=== PATIENT | male | born 1980 | race Caucasian/White ===

== ENCOUNTER 2024-02-21 14:03 | Emergency (ER) | payer OTHER, SELFPAY ==
[2024-02-21 14:06] VITALS: BP 151/98
[2024-02-21 15:00] VITALS: BMI 31.8
[2024-02-21 15:04] VITALS: BP 138/94
[2024-02-21 15:14] LABS: % Basophils 0.2 % (0-2); % Eosinophils 1.5 % (0-6); % Immature Granulocytes 0.4 % (0-0.5); % Lymphocytes 39.2 % (20.5-51.1); % Monocytes 6.2 % (1.7-9.3); % Neutrophils 52.5 % (42.2-75.2); Absolute Eosinophils 0.1 10^3/uL (0-0.7); Absolute Lymphocytes 3.7 10^3/uL (1.2-3.4); Absolute Monocytes 0.6 10^3/uL (0.1-0.6); Hematocrit 50.6 % (39.0-52.0); Hemoglobin 17.7 g/dL (13.0-18.0); Mean Corpuscular Hgb 31.3 pg (27.0-31.0); Mean Corpuscular Volume 89.4 fL (80.0-94.0); Mean Platelet Volume 11.1 fL (7.4-10.4); Nucleated Red Blood Cells % 0 % (-); Platelet Count 182 10^3/uL (130-400); Red Blood Cell Count 5.66 10^6/uL (4.70-6.10); Red Cell Dist. Width 13.5 % (11.5-14.5); White Blood Cell Count 9.5 10^3/uL (4.8-10.8)
--- NOTE | 2024-02-21 15:17 | ED.GENMED ---
History of Present Illness
<Tana Kaye PA-C - Last Filed: 02/21/24 18:22>
General
Chief Complaint: Dizziness
Source: patient
Exam Limitations: none
Time Seen by Provider: 02/21/24 15:14
Nursing documentation reviewed up to this point in time: agreed with
Travel History
Have you had any contact with someone who has COVID-19?: No
Do you have any symptoms of coronavirus? Fever > 100 degrees, chills, cough, shortness of breath, sore throat, loss of taste or smell, muscle aches, or headache?: No
History of Present Illness
History of Present Illness:
43-year-old male with past medical history of hypertension, psoriasis, nephrolithiasis presenting emergency department today with lightheadedness/dizziness. Patient states that this started 6 days ago. Patient states that he started feeling this
sensation when he would stand from a sitting position. Patient denies any loss of consciousness, any syncopal episode. Patient states that at rest and sitting down he would feel better. Patient, because of the symptoms, started to take his blood
pressure and noticed it was lower, systolically in the 100s to the 110s when he normally runs systolically in the 130s. Because of this, patient withheld his blood pressure medications today and patient states that because of this, he feels well
and has not had any further lightheadedness symptoms. Patient currently completely asymptomatic. Patient denies any chest pain, headaches, palpitations, numbness or tingling, fevers or chills. Patient takes 100 mg of metoprolol daily and 0.4 mg of
clonidine once daily.
Past History
<Tana Kaye PA-C - Last Filed: 02/21/24 18:22>
Past History
ED Past Medical History: HTN, NIDDM and Other (Kidney stones)
ED Past Surgical History: Urological
Social History
Tobacco: Smoker
Alcohol: None
Review of Systems
<Tana Kaye PA-C - Last Filed: 02/21/24 18:22>
Review of Systems
All Other Systems: ROS reviewed and negative except as documented in HPI and ROS
Phy Exam
<Tana Kaye PA-C - Last Filed: 02/21/24 18:22>
Physical Exam
Physical Exam:
General: Patient is well appearing and in no acute distress; non-toxic
Skin: Warm and dry, no rashes or lesions
Head: Normocephalic, atraumatic
Eyes: Sclera non-icteric. EOMs intact. No nystagmus.
Cardiac: Regular rate and rhythm, no murmurs
Peripheral Vascular: No lower extremity swelling or edema
Pulm: Normal respiratory effort, no wheezes, rales, or rhonchi
Musculoskeletal: 5/5 strength in bilateral upper and lower extremities
Neuro: CN II-XII intact, no focal neurologic deficits.
Psychiatric: Appropriate mood and affect.
Course
<Tana Kaye PA-C - Last Filed: 02/21/24 18:22>
Orders/Labs/Results
Orders:
Orders
02/21/24 15:02
CMP [Comprehensive Metabolic Panel] Urgent
Complete Blood Count/With Diff Urgent
02/21/24 15:42
Orthostatic VS- Treatment ONCE
Abnormal Lab Results
02/21/24
15:02
MCH 31.3 H pg
(27.0-31.0)
MPV 11.1 H fL
(7.4-10.4)
Absolute Lymphs (auto) 3.7 H 10^3/uL
(1.2-3.4)
Glucose 143 H mg/dl
(70-99)
02/21/24 15:02
02/21/24 15:02
Vital Signs
Initial and Last Documented VS:
Initial Vital Signs
Temp Pulse Resp BP Pulse Ox
98.1 F 91 18 151/98 99
02/21/24 14:06 02/21/24 14:06 02/21/24 14:06 02/21/24 14:06 02/21/24 14:06
Last Documented Vital Signs
Temp Pulse Resp BP Pulse Ox
98.1 F 83 17 130/94 99
02/21/24 14:06 02/21/24 16:45 02/21/24 16:45 02/21/24 16:14 02/21/24 14:06
<Andres Amador, DO - Last Filed: 02/21/24 16:47>
Orders/Labs/Results
Orders:
Orders
02/21/24 15:02
CMP [Comprehensive Metabolic Panel] Urgent
Complete Blood Count/With Diff Urgent
02/21/24 15:42
Orthostatic VS- Treatment ONCE
Abnormal Lab Results
02/21/24
15:02
MCH 31.3 H pg
(27.0-31.0)
MPV 11.1 H fL
(7.4-10.4)
Absolute Lymphs (auto) 3.7 H 10^3/uL
(1.2-3.4)
Glucose 143 H mg/dl
(70-99)
02/21/24 15:02
02/21/24 15:02
Vital Signs
Initial and Last Documented VS:
Initial Vital Signs
Temp Pulse Resp BP Pulse Ox
98.1 F 91 18 151/98 99
02/21/24 14:06 02/21/24 14:06 02/21/24 14:06 02/21/24 14:06 02/21/24 14:06
Last Documented Vital Signs
Temp Pulse Resp BP Pulse Ox
98.1 F 83 17 130/94 99
02/21/24 14:06 02/21/24 16:45 02/21/24 16:45 02/21/24 16:14 02/21/24 14:06
<Tana Kaye PA-C - Last Filed: 02/21/24 18:22>
MDM/Problems Addressed
Differential Diagnosis Includes:
Medication side effect, orthostatic tension, benign positional paroxysmal vertigo, vestibular neuritis, polypharmacy
MDM/Problems Addressed:
Dizziness
Chronic conditions affecting care:
Chronic back pain/neck pain, hypertension, diabetes, nephrolithiasis
<Tana Kaye PA-C - Last Filed: 02/21/24 18:22>
*Pulse Oximetry
Patient hypoxic: no
*Critical Care Note
Total Time (30-74mins, 75-104mins- exclusive of procedures): Not Applicable
Data Reviewed
Review of Other/Old Records Reveals: Records (Reviewed ER physician mentation from 02/28/19) and Testing (Reviewed echocardiogram from 04/14/2019)
Source: patient
<Tana Kaye PA-C - Last Filed: 02/21/24 18:22>
Patient Management
Escalation/DeEscalation of care consider admission/obs:
43-year-old male with past medical history of hypertension, psoriasis, nephrolithiasis presenting emergency department today with lightheadedness/dizziness. Patient states that this started 6 days ago. Patient states that he started feeling this
sensation when he would stand from a sitting position.
Because of the symptoms, patient started taking his blood pressure and noticed it was low. Patient withheld his blood pressure medications today and patient states he felt better and no longer has any symptoms. Considering unremarkable labs,
unremarkable and nonconcerning exam, as well as resolution of symptoms, I do suspect this was result of lower blood pressure. Patient stable for discharge and to adjust his medications, patient will follow-up with his internal control specialist.
ED Attending Note
<Tana Kaye PA-C - Last Filed: 02/21/24 18:22>
-
Portions of this chart may have been created with voice recognition software.� Occasional wrong word or��sound alike� substitutions may have occurred due to the inherent limitations of voice recognition software.
<Andres Amador DO - Last Filed: 02/21/24 16:47>
ED Attending Note
Patient seen and examined by attending physician: Yes
I performed a history and physical exam of patient and discussed management with resident, I reviewed resident's note and agree with documented findings and plan of care.: Yes
ED Attending Note:
Patient is a 43-year-old male with a history of hypertension who awoke feeling lightheaded especially with position changes. Has not vertigo. Patient's blood pressure was 108 systolic today. Patient takes metoprolol along with clonidine. Patient
is to take it twice a day but doubles up the dosages and just takes it in the morning. Patient did not take the medicine today and felt better. Patient's states is been going on for 5 days. Patient states she was outside washing his car for 5
hours 6 days ago and then started to feel this way not the next day but the following day. Patient states he drinks a lot of sugary type beverages but does not drink much water. Physical exam patient does not appear to be in any distress.
Physical is otherwise unremarkable. Labs reviewed. Blood pressure is better. Patient has not started his losartan yet. Explained the patient needs to drink more water and that tomorrow morning he take his blood pressure if it is below 110 to
hold his medications and if it is above just to take what is prescribed or half of what he normally does. Patient will follow-up with his family doctor.
Discharge Plan
Departure
Patient Disposition: Home (Routine Discharge)
Date of Disposition: 02/21/24
Time of Disposition: 16:46
Patient with high blood pressure during this ER visit?: Yes
Discharge Problem:
Positional lightheadedness
Instructions: Dizziness, Adult ED, BLOOD PRESSURE
Referrals:
Gumaro Ascencio DO [Family Provider] -
Activity Restrictions/Additional Instructions:
Please continue to stay well hydrated and drink more water.
Please take your blood pressure tomorrow morning and please hold your medications if your pressure is above 110 and if above, please take half of what has been prescribed to you.
Please return to the emergency department should you experience chest pain, shortness of breath, syncopal episodes, confusion, facial droop, or any other signs or symptoms concerning to you.
Interventions
Interventions:
*Risk Screen - Suicide Last Done: 02/21/24 14:06
*General Assessment Last Done: 02/21/24 14:06
*Neglect/Abuse Screening Last Done: 02/21/24 14:06
ED- Fall Risk Assessment Last Done: 02/21/24 15:01
*ED COVID-19 Vaccine History Last Done: 02/21/24 14:06
*Nursing Disposition Last Done: 02/21/24 17:05
ED- Neurological Assessment Last Done: 02/21/24 15:01
ED- Cardiac Assessment Last Done: 02/21/24 15:01
Discharge Date and Time
Discharge Date/Time: 02/21/24 17:07
Print Language: RUSSIAN
[2024-02-21 15:32] LABS: ALT (SGPT) 26 U/L (0-50); AST (SGOT) 26 U/L (17-59); Albumin 4.3 g/dl (3.5-5.0); Alkaline Phosphatase 62 U/L (38-126); Blood Urea Nitrogen 14 mg/dl (9-20); Calcium 9.7 mg/dl (8.4-10.2); Carbon Dioxide 29 mmol/L (22-30); Chloride 103 mmol/L (98-107); Estimated Creatinine Clearance 116 ml/min; Glucose 143 mg/dl (70-99); Potassium 4.8 mmol/L (3.5-5.1); Sodium 139 mmol/L (135-145); Total Bilirubin 0.5 mg/dl (0.2-1.3); eGFR > 60.00
[2024-02-21 16:00] VITALS: BP 117/80
[2024-02-21 16:11] VITALS: BP 122/86
[2024-02-21 16:14] VITALS: BP 130/94
[2024-02-21 16:16] VITALS: BP 122/86; BP 130/94; BP 133/99; PULSE 80; PULSE 87; PULSE 88
== END 2024-02-21 17:07 | disposition home or self-care (01) ==
LOC: EMR 14:03
PROVIDERS: EMERGENCY PHYSICIAN Emergency Medicine; FAMILY PHYSICIAN Family Medicine
DX: R42 Dizziness and giddiness (principal); I10 Essential (primary) hypertension; L40.9 Psoriasis, unspecified; E11.9 Type 2 diabetes mellitus without complications; F17.200 Nicotine dependence, unspecified, uncomplicated; Z79.899 Other long term (current) drug therapy; Z87.442 Personal history of urinary calculi
CPT/HCPCS: 99283; 80053; 85025

== ENCOUNTER 2024-05-15 11:27 | Emergency (ER) | payer OTHER, SELFPAY ==
[2024-05-15 11:31] VITALS: BP 156/103
[2024-05-15 11:56] VITALS: BMI 31.6
[2024-05-15 12:06] VITALS: BP 135/84
[2024-05-15 12:27] LABS: % Basophils 0.5 % (0-2); % Eosinophils 1.8 % (0-6); % Immature Granulocytes 0.3 % (0-0.5); % Lymphocytes 31.8 % (20.5-51.1); % Monocytes 7.1 % (1.7-9.3); % Neutrophils 58.5 % (42.2-75.2); Absolute Basophils 0.1 10^3/uL (0-0.2); Absolute Eosinophils 0.2 10^3/uL (0-0.7); Absolute Lymphocytes 3.2 10^3/uL (1.2-3.4); Absolute Monocytes 0.7 10^3/uL (0.1-0.6); Absolute Neutrophils 5.9 10^3/uL (1.4-6.5); Hematocrit 49.9 % (39.0-52.0); Hemoglobin 17.5 g/dL (13.0-18.0); Mean Corp Hgb Conc. 35.1 g/dL (33.0-37.0); Mean Corpuscular Hgb 31.1 pg (27.0-31.0); Mean Corpuscular Volume 88.6 fL (80.0-94.0); Mean Platelet Volume 11.6 fL (7.4-10.4); Nucleated Red Blood Cells % 0 % (-); Platelet Count 197 10^3/uL (130-400); Red Blood Cell Count 5.63 10^6/uL (4.70-6.10); Red Cell Dist. Width 12.6 % (11.5-14.5)
--- NOTE | 2024-05-15 12:38 | ED.GENMED ---
History of Present Illness
General
Chief Complaint: Chest Pain
Source: patient
Exam Limitations: none
Time Seen by Provider: 05/15/24 12:07
Nursing documentation reviewed up to this point in time: agreed with
History of Present Illness
History of Present Illness:
Patient is a 44 yr old male with PMH of diabetes type 2, hypertension high cholesterol presents here for evaluation of chest pain. He reports he has had this off-and-on chest pain since 2017. He reports this all started after using medical
marijuana he has been seen by cardiology here at [facility], Dr. Jose Fisher and they are not sure the reason. He did have a calcium score which was 0. He also had other cardiac testing. He reports pain is off and on and he has had pain for the
past several days. He reports pain is left side of his chest. He denies any nausea vomiting sweating radiation of pain he has no associated shortness of breath with it. He reports he goes away when he lays down to go to sleep or he has tried
taking his father's lorazepam 0.5 mg tablets. When this first started he tried to see a psychiatrist thinking it may have been anxiety but they were not able to see him. He also is in pain management and is on chronic narcotics and therefore is
not a candidate for antianxiety medication.
He is currently pain free.
Past History
Past History
ED Past Medical History: HTN, NIDDM and Other (Kidney stones)
ED Past Surgical History: Urological
Social History
Tobacco: Smoker
Alcohol: None
Review of Systems
Review of Systems
Allergies reviewed?: Yes
All Other Systems: ROS reviewed and negative except as documented in HPI and ROS
Constitutional: Reports no symptoms; Denies fever, fatigue or chills
Respiratory: Reports no symptoms
Cardiac: Reports chest pain
ABD/GI: Reports no symptoms
: Reports no symptoms
Musculoskeletal: Reports no symptoms
Skin: Reports no symptoms
Neurological: Reports no symptoms
Psychiatric: Reports no symptoms
Phy Exam
General Physical Exam
General Presentation: no apparent distress
General Skin: warm and dry
General Habitus: normal
General Mental: alert
General Hydration: appears well hydrated
ENT Exam
ENT Exam: EOMI
Cardiovascular Exam
Cardiovascular Exam: regular rate/rhythm, no murmur and normal peripheral pulses
Pulmonary Exam
Pulmonary Exam: lungs clear and no respiratory distress
Neurological Exam
Neurological Exam: alert and oriented x3
Musculoskeletal Exam
Musculoskeletal Exam: full ROM
Skin Exam
Skin Exam: normal color and warm/dry
Psychiatric Exam
Psychiatric Exam: normal mood/affect
Scores
Heart Score for Chest Pain Patients
STEMI patient?: Not applicable
PERC Rule Criteria
Age <50 years: Yes
HR <100 bpm: Yes
Room air oxygen sat >94%: Yes
History of DVT or PE: No
Recent trauma or surgery: No
Hemoptysis: No
Exogenous estrogen: No
Clinical signs suggestive of DVT: No
: No
Considered low risk for PE: Yes
PERC Score: 0
PE can be excluded by PERC: Yes
Course
Orders/Labs/Results
Orders:
Orders
05/15/24 11:29
ECG [Electrocardiogram (*1)] Urgent
Reason for Study: Chest Pain
EKG- Treatment ONCE
05/15/24 12:01
Comprehensive Metabolic Panel Urgent
Lipase Urgent
TSH Reflex To Free T4 Urgent
Troponin I Urgent
05/15/24 12:02
Complete Blood Count/With Diff Urgent
05/15/24 12:45
Chest [CR Chest - 2 Views ] Urgent
Comment:
Reason For Exam: cp
Abnormal Lab Results
05/15/24 05/15/24
12:01 12:02
MCH 31.1 H pg
(27.0-31.0)
MPV 11.6 H fL
(7.4-10.4)
Absolute Monos (auto) 0.7 H 10^3/uL
(0.1-0.6)
Glucose 166 H mg/dl
(70-99)
05/15/24 12:02
05/15/24 12:01
Vital Signs
Initial and Last Documented VS:
Initial Vital Signs
Temp Pulse Resp BP Pulse Ox
98.8 F 90 18 156/103 98
05/15/24 11:31 05/15/24 11:31 05/15/24 11:31 05/15/24 11:31 05/15/24 11:31
Last Documented Vital Signs
Temp Pulse Resp BP Pulse Ox
98.8 F 84 15 135/84 95
05/15/24 11:31 05/15/24 12:45 05/15/24 12:45 05/15/24 12:06 05/15/24 12:45
MDM/Problems Addressed
MDM/Problems Addressed:
Patient has had intermittent chest pain off and on for the past 7 years. He was evaluated by his program developer, Dr. Fisher. He has had echocardiograms in normal coronary cardiac calcium score. He reports for the past several days he again has had
intermittent same type of left-sided chest pain not associated with exertion. No shortness of breath no injury.
He reports he did feel that this is anxiety in the past and tried to get an appoint with psychiatry however was unable to do so. He reports that sleep will relieve symptoms as well as taking occasional lorazepam. Today he took a 0.5 mg tablet of
his father's medication that did relieve his symptoms. He is currently asymptomatic and has remained asymptomatic here in the ER. Pt Is in no acute distress looks well. He is nontoxic nontachycardic nonhypoxic PERC 0.
Pt is safe to d/c home.
I did review with continued follow-up with cardiology (He was last seen one month ago)
*Radiology
Radiology exam reviewed: radiology read reviewed
*Pulse Oximetry
Patient hypoxic: no
*EKG
Interpreted by ED Provider?: Yes
Interpretation: normal
Heart Rate: 85
Ischemia: no ischemia
*Critical Care Note
Total Time (30-74mins, 75-104mins- exclusive of procedures): Not Applicable
Data Reviewed
Review of Other/Old Records Reveals: Other (Cardiology reports stress echo echo:2019 nml )
ED Attending Note
-
Portions of this chart may have been created with voice recognition software.� Occasional wrong word or��sound alike� substitutions may have occurred due to the inherent limitations of voice recognition software.
Discharge Plan
Departure
Patient Disposition: Home (Routine Discharge)
Date of Disposition: 05/15/24
Time of Disposition: 13:47
Patient with high blood pressure during this ER visit?: Yes
Covid-19: Not Applicable
Discharge Problem:
Chest pain
Instructions: Chest Pain DCA Follow Up
Referrals:
Gumaro Ascencio DO [Family Provider] -
Jose Fisher MD [Active] -
Activity Restrictions/Additional Instructions:
Follow-up with cardiology as discussed you are placed on the chest pain hotline which means you should receive a call from the office if you do not please give them a call for reevaluation return if any worsening of symptoms
Interventions
Interventions:
*General Assessment Last Done: 05/15/24 11:53
ED- Cardiac Assessment Last Done: 05/15/24 12:00
Discharge Date and Time
Print Language: [place]
[2024-05-15 12:57] LABS: ALT (SGPT) 23 U/L (0-50); AST (SGOT) 24 U/L (17-59); Albumin 4.3 g/dl (3.5-5.0); Alkaline Phosphatase 64 U/L (38-126); Blood Urea Nitrogen 12 mg/dl (9-20); Calcium 9.8 mg/dl (8.4-10.2); Carbon Dioxide 24 mmol/L (22-30); Chloride 101 mmol/L (98-107); Estimated Creatinine Clearance > 125 ml/min; Glucose 166 mg/dl (70-99); Lipase 32 U/L (23-300); Potassium 4.5 mmol/L (3.5-5.1); Sodium 135 mmol/L (135-145); Total Bilirubin 0.4 mg/dl (0.2-1.3); Total Protein 6.7 g/dl (6.3-8.2); eGFR > 60.00
[2024-05-15 13:08] LABS: Troponin I < 0.012 ng/ml
== END 2024-05-15 14:30 | disposition home or self-care (01) ==
LOC: EMR 11:27
PROVIDERS: EMERGENCY PHYSICIAN Student in an Organized Health Care Education/Training Program; FAMILY PHYSICIAN Family Medicine
DX: R07.89 Other chest pain (principal); I10 Essential (primary) hypertension; F17.200 Nicotine dependence, unspecified, uncomplicated; E11.9 Type 2 diabetes mellitus without complications; E78.00 Pure hypercholesterolemia, unspecified
CPT/HCPCS: 99285; 71046; 80053; 83690; 84443; 84484; 85025; 93005

== ENCOUNTER → 2024-08-15 13:40 | Outpatient (REF) | payer OTHER, SELFPAY | LOC: RCS 13:40 | PROVIDERS: ATTENDING PHYSICIAN Internal Medicine Cardiovascular Disease; FAMILY PHYSICIAN Family Medicine | DX: R07.89 Other chest pain (principal) | CPT/HCPCS: 93306 ==

== ENCOUNTER 2025-07-17 17:03 | Emergency (ER) | payer OTHER, SELFPAY ==
[2025-07-17 17:09] VITALS: BP 139/92
[2025-07-17 17:33] LABS: Hematocrit 53.2 % (39.0-52.0); Hemoglobin 17.8 g/dL (13.0-18.0); Mean Corp Hgb Conc. 33.5 g/dL (33.0-37.0); Mean Corpuscular Volume 91.7 fL (80.0-94.0); Nucleated Red Blood Cells % 0 % (-); Platelet Count 169 10^3/uL (130-400); Red Cell Dist. Width 13.0 % (11.5-14.5)
[2025-07-17 18:00] LABS: ALT (SGPT) 45 U/L (0-50); AST (SGOT) 46 U/L (17-59); Albumin 4.6 g/dl (3.5-5.0); Alkaline Phosphatase 70 U/L (38-126); Blood Urea Nitrogen 12 mg/dl (9-20); Calcium 9.6 mg/dl (8.4-10.2); Carbon Dioxide 24 mmol/L (22-30); Chloride 103 mmol/L (98-107); Glucose 218 mg/dl (70-99); Potassium 4.3 mmol/L (3.5-5.1); Sodium 133 mmol/L (135-145); Total Protein 7.7 g/dl (6.3-8.2); eGFR > 60.00
[2025-07-17 21:23] VITALS: BP 170/100
[2025-07-17 21:24] VITALS: BMI 30.4
--- NOTE | 2025-07-17 21:31 | ED.GENMED ---
History of Present Illness
General
Chief Complaint: Numbness
Source: patient
Exam Limitations: none
Time Seen by Provider: 07/17/25 21:04
History of Present Illness
History of Present Illness:
45-year-old male type II diabetic on insulin Mounjaro metformin presents complaining of worsening numbness to both sides of the face and neck pain as well as numbness and pain down the left arm. No shortness of breath. No chest pain. No fevers.
No rashes. No abdominal pain. No other complaints at this time
Past History
Past History
ED Past Medical History: HTN, NIDDM and Other (Kidney stones)
ED Past Surgical History: Urological
Social History
Tobacco: Smoker
Alcohol: None
Phy Exam
Physical Exam
Physical Exam:
General: Well-appearing male no acute respiratory distress
HEENT normal cephalic atraumatic pupils equal round react light mucosa moist neck is supple
Heart: Regular rate and rhythm
Lungs: Clear no wheeze
Neurologic exam: Alert and oriented no facial asymmetry cranial nerves II through XII intact good strength to the upper and lower extremities extraocular motions intact
Extremities: No cyanosis or edema
Course
Orders/Labs/Results
Orders:
Orders
07/17/25 17:11
EKG [Electrocardiogram (*1)] Urgent
Reason for Study: Fatigue / Weakness
07/17/25 17:12
EKG- Treatment ONCE
07/17/25 17:23
CBC/With Diff [Complete Blood Count/With Diff] Urgent
CMP [Comprehensive Metabolic Panel] Urgent
Lyme Progressive Urgent
Comment: ADD ON
07/17/25 21:17
CT Cervical Spine W/o Iv Contr Urgent
Comment:
Reason For Exam: neck pain, numbness
CT Head W/o Iv Contrast Urgent
Comment:
Reason For Exam: headache, facial numbness
07/17/25 21:32
Add On- LAB Urgent
Tests Added?: lyme progressive
Abnormal Lab Results
07/17/25
17:23
Hct 53.2 H %
(39.0-52.0)
MPV 11.4 H fL
(7.4-10.4)
Abs Immat Gran (auto) 0.1 H 10^3/uL
(0-0.05)
Absolute Lymphs (auto) 3.7 H 10^3/uL
(1.2-3.4)
Sodium 133 L mmol/L
(135-145)
Glucose 218 H mg/dl
(70-99)
07/17/25 17:23
07/17/25 17:23
Vital Signs
Initial and Last Documented VS:
Initial Vital Signs
Temp Pulse Resp BP Pulse Ox
98.3 F 92 14 139/92 99
07/17/25 17:09 07/17/25 17:09 07/17/25 17:09 07/17/25 17:09 07/17/25 17:09
Last Documented Vital Signs
Temp Pulse Resp BP Pulse Ox
98.0 F 92 20 170/100 99
07/17/25 21:23 07/17/25 17:09 07/17/25 21:23 07/17/25 21:23 07/17/25 21:32
MDM/Problems Addressed
Differential Diagnosis Includes:
Patient presents with paresthesias to the bilateral aspect of the face and left arm with associated subtle headache and neck pain. Etiology somewhat unclear. Consider neuropathy from his underlying poorly controlled diabetes versus anxiety versus
paresthesias. He is concerned as his mother of a brain tumor at a young age. Will order CT of the head. Labs reviewed slight hyperglycemia. Ordered a Lyme test which is likely negative as he denies any known exposure.
*Pulse Oximetry
SaO2: 99
Oxygen Mode of Delivery: Room air
Patient hypoxic: no
*Critical Care Note
Total Time (30-74mins, 75-104mins- exclusive of procedures): Not Applicable
Update Note
Update Note:
CT of the head and cervical spine shows a 3 cm left sided arachnoid cyst. Discussed findings with emergency room attending as well as neurosurgery from [place]. Explained the symptoms of bilateral numbness without motor deficit. Per neurosurgery
this is unlikely to cause bilateral symptoms. No indication for admission or urgent transfer but will advise follow-up for persistent symptoms. Stable for discharge
ED Attending Note
-
Portions of this chart may have been created with voice recognition software.� Occasional wrong word or��sound alike� substitutions may have occurred due to the inherent limitations of voice recognition software.
Discharge Plan
Departure
Patient Disposition: Home (Routine Discharge)
Date of Disposition: 07/17/25
Time of Disposition: 22:29
Patient with high blood pressure during this ER visit?: No
Discharge Problem:
Facial numbness
Instructions: Paresthesia (DC)
Referrals:
NONE,* [Family Provider, Internal Medicine]
Activity Restrictions/Additional Instructions:
As discussed, your CT scan demonstrates a cyst in the left backside of your brain measuring 3 cm. These findings were discussed with neurosurgery and it was felt that this was not causing your symptoms. Please follow-up for further evaluation.
Interventions
Interventions:
*Risk Screen - Suicide Last Done: 07/17/25 17:09
*General Assessment Last Done: 07/17/25 17:09
*Neglect/Abuse Screening Last Done: 07/17/25 17:09
*ED- Fall Risk Assessment Last Done: 07/17/25 21:24
*ED COVID-19 Vaccine History Last Done: 07/17/25 17:09
*ED Influenza Vaccine History Last Done: 07/17/25 17:09
ED- Neurological Assessment Last Done: 07/17/25 21:30
Discharge Date and Time
Print Language: CHINESE
[2025-07-19 15:05] LABS: Lyme Antibody Screen, EIA Negative (Negative)
== END 2025-07-17 22:36 | disposition home or self-care (01) ==
LOC: EMR 17:03
PROVIDERS: Emergency Medicine; EMERGENCY PHYSICIAN Emergency Medicine
DX: R20.0 Anesthesia of skin (principal); G93.0 Cerebral cysts; E11.65 Type 2 diabetes mellitus with hyperglycemia; I10 Essential (primary) hypertension; F17.200 Nicotine dependence, unspecified, uncomplicated; Z79.84 Long term (current) use of oral hypoglycemic drugs; Z79.85 Long-term (current) use of injectable non-insulin antidiabetic drugs
CPT/HCPCS: 99284; 70450; 72125; 80053; 85025; 86618; 93005